=== PATIENT | male | born 1985 | race Asian ===

== ENCOUNTER → 2025-08-19 09:39 | Outpatient (REF) | payer OTHER, SELFPAY ==
--- NOTE | 2025-08-19 09:45 | CA_ITS ---
Transthoracic Echocardiogram Patient (Last, First, Middle): Rachel Negron, Gender: M Date of : 1985 Age: 40 Procedure Date: 08/19/2025 Procedure Type: Transthoracic Echocardiogram Location: OP Height: 172.72 cm Weight: 63.99 kg BSA: 1.76 m2 Heart Rate: bpm BP: 112 / 76 mmHg Defensive Secondary Coach: JANI Referring MD: Timbo Adkins MD Symptoms: I45.10 UN SPEC RBBB Study Quality: Fair ECG Rhythm: Sinus Conclusions: - The left ventricular systolic function is normal. The calculated ejection fraction is 65% by biplane method. - No obvious valvular pathology seen on this study. Findings Left Ventricle Normal left ventricular cavity size. There is normal left ventricular wall thickness. The left ventricular systolic function is normal. The calculated ejection fraction is 65% by biplane method. There is no evidence of regional wall motion abnormalities. Diastolic function is normal for age. Right Ventricle Normal right ventricular cavity size and systolic function. Atria Both atria are normal in size. Aortic Valve There is a normal trileaflet aortic valve. There is no aortic valve stenosis. There is no aortic valve regurgitation. Mitral Valve The mitral valve appears normal. There is trace mitral valve regurgitation. There is no mitral valve stenosis. Pulmonic Valve The pulmonic valve is likely normal. Tricuspid Valve There is trace tricuspid valve regurgitation. There is no evidence of pulmonary hypertension. Great Vessels The asc aorta is normal in size. Venous The inferior vena cava is normal in size and collapses greater than 50% with inspiration. Pericardium/Pleural There is no evidence of pericardial effusion. Prior Study Comparison No prior study available for comparison. Recommendations, Care & Conclusions No obvious valvular pathology seen on this study. Measurements 2D Linear Measurements IVSd: 0.73 0.6-0.9/0.6-1.0 cm LVIDd: 4.49 3.9-5.3/4.2-5.9 cm LVIDd Index: 2.55 2.4-3.2/2.2-3.1 cm/m2 LVIDs: 2.98 2.0-3.6 cm LVPWd: 0.86 0.7-1.1 cm LA Diam: 2.90 2.7-3.8/3.0-4.0 cm LAIDs Index: 1.65 1.5-2.3 cm/m2 LV Mass: 139.03 67-162/88-224 g LV Mass Index: 78.99 43-95/49-115 g/m2 LVOT Diam: 2.10 3.0+(-)1.3 cm 2D Systolic Function EF 4C: 64.30 >55% EF 2C: 66.40 >55% EF BiP: 65.40 >55% Mitral Valve MV Pk E: 0.58 MV PK A: 0.52 MV Decel Time: 354.00 E/A: 1.10 E'Lateral: 12.10 E'Medial: 9.57 E/E' Med: 6.00 E/E' Lat: 4.80 PHT: 104.00 MVA PHT: 2.12 Decel [place]: 1.63 Aortic Valve AoV Pk [place]: 0.98 AoV Mn Wesley: 0.77 AoV VTI: 0.21 AoV Pk Grad: 4.00 Aov Mn Grad: 2.00 ADELINE Cont.VTI: 2.42 LVOT LVOT Pk [place]: 0.76 LVOT Mn [place]: 0.48 LVOT VTI: 0.15 LVOT Pk Grad: 2.00 LVOT Mn Grad: 1.00 LVOT Diam: 2.10 LVOT Area: 3.46 Diastolic Function MV Pk E: 0.58 MV Pk A: 0.52 E/A: 1.10 E'Medial: 9.57 E/E' Med: 6.00 E' Laterial: 12.10 E/E' Lat: 4.80 Right Ventricle TAPSE (mm): 24.40 TVS' Wesley: 11.60 Tricuspid Valve RA Press: 3.00 Great Vessels Aorta Sinus of Valsalva: 2.71 2.0-3.[address] [place]: 2.14 1.7-3.4 cm Ao Asc: 2.60 2.1-3.4 cm Pulmonary Veins Pulm Vein S/D 1.00 Updated in Other Vendor System with Status of Final Romero Castillo MD electronically signed on 08/20/2025 4:34:11 PM with status of Final
== END ==
LOC: HO.CARD 09:39
PROVIDERS: Visit Provider Internal Medicine
DX: I45.10 Unspecified right bundle-branch block (principal)
CPT/HCPCS: 93306

== ENCOUNTER → 2025-08-19 09:45 | Outpatient (BNV) | payer OTHER, SELFPAY | PROVIDERS: Visit Provider Internal Medicine | DX: I45.10 Unspecified right bundle-branch block (principal) | CPT/HCPCS: 93306 ==